=== PATIENT | female | born 1965 | race Caucasian/White ===

== ENCOUNTER → 2017-05-13 | Day surgery (SDC) | payer MEDICARE, MEDICAID ==
[~2017-05-13] VITALS: Ht 170.2 cm; Wt 83.5 kg
[~2017-05-13] MED LIST: ASPIRIN ADULT L81 M3 PO; AZITHROMYCIN250 MG PO; CIPRO 500MG TA500 MG PO; ESTRADIOL0.5 MG PO; ESTRADIOL1 MG PO; GEMFIBROZIL600 MG PO; HYDROCHLOROTH12.5 M1 PO; HYDROXYZINE 25M25 MG PO; IBUPROFEN800 MG PO; K-DUR 2020 MEQ PO; LEVOTHYROXIN0.025 MG PO; LEVOTHYROXINE0.05 MG NG; LIDOCAINE VISC100 ML PO; LORATADINE 10MG10 M1 PO; LORTAB 5/500 501 TAB PO; METFORMIN500 MG PO; NAPROSYN 500MG500 MG PO; OMEPRAZOLE40 MG PO; POTASSIUM CHLO20 ME2 PO; PRAVASTATIN40 MG PO; PROAIR HFA0.09 MG/AC IH; RANITIDINE HCL150 MG PO; TEGRETOL 200MG200 MG PO; TEGRETOL200 MG PO; TYLENOL/COD #31 EACH PO; VITAMIN D31000 IU PO
[2017-05-13 09:08] VITALS: BP 155/87
[2017-05-13 09:20] VITALS: BP 155/87
[2017-05-13 09:21] VITALS: BP 189/95
--- NOTE | 2017-05-13 09:24 | Procedure Note ---
Procedure detail Date of procedure: 05/13/17 Anesthesiologist: Deric Verduzco M.D. Complications: None Pre-procedure diagnosis: Sacroiliitis Post-procedure diagnosis: Same Indications for procedure: This patient is a pleasant 51-year-old white female who we are seeing for LEFT low back and LEFT leg pain. She has tenderness over the LEFT SI joint. She has a positive Saad's test on the LEFT side. She does have some history of low back pain with degenerative arthritis. We will order an MRI of lumbar spine to discern pathology. Today we will inject her LEFT SI joint to see if this will give her some relief. Procedure detail: Procedure: Left sacroiliac injection under fluoroscopy Informed consent was obtained and the risk and benefits of the procedure were explained to the patient.~ The patient was taken to the procedure room and noninvasive monitors were placed including noninvasive blood pressure cuff and pulse oximeter.~ The patient was placed prone on the procedure table.~ The~ left hip was cleansed using Betadine as a cleansing solution.~ C-arm fluorosocpy was used to view the left SI joint.~ The skin and subcutaneous tissues were anesthetized using Lidocaine 1.5% and a 25-gauge needle.~ After this, a 22-gauge spinal needle was inserted under fluoroscopic guidance into the inferior aspect of the left SI joint.~ Omnipaque dye was injected and a good spread was seen throughout the joint.~ After this, approximately 5 mL of bupivacaine 0.25% and Depo-Medrol 40 mg was incrementally injected into the sacroiliac joint.~ The patient tolerated the procedure well with no complications.~ The patient was observed in the Pain Clinic for a period of 30-45 minutes, then discharged home neurologically intact.~ Plan and disposition: We will follow up with her in 2 weeks. We will order an MRI of lumbar spine to discern pathology given her low back pain and radicular symptoms to her leg. at 0923
[2017-05-13 09:36] VITALS: BP 145/78
== END ==
LOC: PM 08:49
PROC: 3E0U33Z Introduction of Anti-inflammatory into Joints, Percutaneous Approach (ICD-10-PCS; principal; 2017-05-13)
PROC: 3E0U3BZ Introduction of Anesthetic Agent into Joints, Percutaneous Approach (ICD-10-PCS; 2017-05-13)
DX: M46.1 Sacroiliitis, not elsewhere classified (principal)
CPT/HCPCS: G0260; J1040; Q9966

== ENCOUNTER 2017-06-09 06:13 | Day surgery (SDC) | payer MEDICARE, MEDICAID ==
[~2017-06-09] VITALS: Ht 170.2 cm; Wt 82.6 kg
[2017-06-09 07:36] LABS: HEMOGLOBIN 13.8 g/dL (12.2-16.2); LYMPH # 6.4 K/mm3 (0.7-4.5); LYMPH % 45.1 % (10-50.0)
--- NOTE | 2017-06-09 10:07 | Anesthesia Record ---
Anesthesia Record Part I Total IV fluids: 500 EBL (ml): 0 Urine Output: 0 B/P: 116/73 % SaO2: 95 Pulse: 91 Resps: 16 Temp: 97.2 Patient is: Drowsy, Stable Stable to PACU at: 0845 at 1006
--- NOTE | 2017-06-09 10:08 | Anesthesia Record ---
Anesthesia Record Part II Discharge time: 914 Destination: Same day surgery PACU nurse assessment review? Yes Patient is: Stable Anesthesia complications? No at 1007
[2017-06-09 11:03] VITALS: BP 140/80
--- NOTE | 2017-06-09 16:34 | Operative Note ---
[employer] Date of Procedure: 06/09/17 Time of Procedure: 0800 Surgeon: Anurag Winn Procedure performed: Left myringotomy and tube Anesthesia: General Pre-operative dx: 1.Left persistent acute otitis media 2. Left serous otitis media Post-operative dx: same Operative procedure: With patient under general anesthesia the Left ear was prepped and draped. The Left tympanic membrane was acutely inflamed. The fluid was cleared and a Triune T-tube was inserted. Ciprodex drops were applied. The operating microscope was used for all the procedure. And the patient was sent to recovery in good general condition. EBL (ml): 1 Complications: None at 2513
[2017-06-20] MEDS ORDERED: TOPROL XL 25MG25 MG PO (09:01)
[2017-06-20] MEDS ORDERED: VISTARIL25 MG PO (09:01)
[2017-06-20] MEDS ORDERED: LIPITOR40 MG PO (09:02)
== END 2017-06-09 10:12 | disposition home or self-care (01) ==
LOC: SDC 06:13
PROVIDERS: Otolaryngology
PROC: 099680Z Drainage of Left Middle Ear with Drainage Device, Via Natural or Artificial Opening Endoscopic (ICD-10-PCS; principal; 2017-06-09 08:00)
DX: H65.02 Acute serous otitis media, left ear (principal); E11.9 Type 2 diabetes mellitus without complications
CPT/HCPCS: J2405

== ENCOUNTER → 2017-06-10 | Outpatient (CLI) | payer MEDICARE, MEDICAID ==
[~2017-06-10] MED LIST changes: +LIPITOR40 MG PO; +TOPROL XL 25MG25 MG PO; +VISTARIL25 MG PO
--- NOTE | 2017-06-10 17:34 | RADIOLOGY REPORT PS360 ---
CT LUMBAR SPINE W/O CONTRAST CLINICAL INDICATION: Low back pain radiating into the legs BACK PAIN ORDERING PHYSICIAN: ABDIFATAH DAMIAN CRNA PATIENT AGE: 51 years COMPARISON: None TECHNIQUE:Axial, sagittal, and coronal images are generated and reviewed without contrast FINDINGS: There is normal alignment. There are Schmorl's nodes at T12, L1, L2, and L3. There is minimal concentric bulging disc at L3-L4 and L4-L5 and L5-S1. Facet hypertrophic change is present at L4-L5 and L5-S1 with mild bilateral foraminal narrowing at L4-L5... Small vertebral endplate osteophytes are present at L2, L3, L4, and L5 No fracture or dislocation. No lytic or blastic change. There is a small area of decreased attenuation involving the L3 vertebral body superiorly is 7 mm in could be due to a lipoma. IMPRESSION: 1. No acute finding. 2. Mild lumbar spondylosis with vertebral endplate osteochondrosis 3. Mild concentric bulging disc L3-L4 L4-L5 and L5-S1 and facet hypertrophic changes at L4 and L5 with mild bilateral foraminal narrowing at L4-L5
== END ==
LOC: RAD 13:43
DX: M54.5 Low back pain (principal)

== ENCOUNTER → 2017-06-24 | Outpatient (CLI) | payer MEDICARE, MEDICAID ==
--- NOTE | 2017-06-24 13:29 | RADIOLOGY REPORT PS360 ---
History and Indications: Hypertension, diabetes, hyperlipidemia, tobacco use, family history, chest pain and shortness of breath. Procedure: Patient received a 0.4 mg of Lexiscan, resting heart rate was 77 bpm, resting blood pressure 136/85, with Lexiscan maximum heart rate achieved was 105 bpm which is less than 85% of the maximum predicted heart rate and a blood pressure was 133/89. With Lexiscan patient complained of shortness of breath. Electrocardiogram: Resting electrocardiogram showed sinus rhythm first degree AV block, nonspecific ST-T changes, with Lexiscan there is less than 1.[address] segment depression noted from the baseline EKG. The EKG portion of the Lexiscan Myoview is nondiagnostic. Cardiac stress and resting SPECT images: Cardiac stress and rest SPECT images were obtained using technetium 99 Myoview 10.3 mCi at rest and 30.0 mCi at stress, gated SPECT further analysis of segmental wall motion and calculation of the ejection fraction also done. Cardiac stress and rest SPECT images show a mild fixed defect in the anterior wall with normal contractility in the gated SPECT is likely secondary to soft tissue attenuation, no reversible ischemia seen. Computer derived ejection fraction over 65% with no obvious regional wall motion abnormality, right ventricle is normal size and contractility. Conclusion: 1. The EKG portion of the Lexiscan Myoview is nondiagnostic. 2. No obvious scintigraphic evidence of reversible ischemia seen, computer derived ejection fraction is over 65% with no obvious regional wall motion abnormality, right ventricle is normal size and contractility.
--- NOTE | 2017-06-24 13:48 | RADIOLOGY REPORT PS360 ---
PROCEDURE: 2-D M-mode and color Doppler study INDICATIONS FOR THE TEST: Chest pain COPD Heart Murmur Tobacco SmokingX Palpitations Fatigue Syncope Edema HypertensionXDiabetes MellitusX Rheumatic Fever SOB DOEXObesityXHyperlipidemiaX Family History HD Additional History PATIENT INFORMATION HEIGHT: 67 WEIGHT:182 GENDER: Female B/P:140/80 2-D/M-MODE INTERPRETATION: 2-D MEASUREMENTS OBSERVED VALUES IN CMS Right Ventricular Dimension (RVDd) 3.0 Interventricular Septum (Thickness)(IVsd) 1.0 Left Ventricular Internal Dimensions(LVIDd) 4.4 Left Ventricular Posterior Wall (Thickness)(LVPWd) 1.0 Aortic Root 3.0 Aortic Cusp Separation Left Atrial Dimensions (LAD) 3.8 2D 1. Left atrium is qualitatively mildly enlarged, left ventricle is normal size, there is no concentric left ventricular hypertrophy, visually estimated ejection fraction 55% with no obvious regional wall motion abnormality. 2. The right atrium is normal size, right ventricle is mildly enlarged with normal contractility. 3. The aortic valve is minimally fibrosed. 4. The mitral valve has mild mitral annular calcification. 5. The tricuspid valve is grossly normal. 6. No significant pericardial effusion noted. DOPPLER INTERROGATION: Doppler interrogation of the aortic, mitral and tricuspid valve is presence of mild mitral and tricuspid regurgitation, tricuspid regurgitant jet velocity is insufficient for calculation of the right ventricular systolic pressure. Diastolic parameters are within normal range. CONCLUSION: 1. Normal left ventricular size, preserved left ventricular systolic function, visually estimated ejection fraction 55% with no obvious regional wall motion abnormality, diastolic parameters are within normal range. 2. Mildly enlarged right ventricle with normal contractility. 3. Mild mitral and tricuspid regurgitation. 4. No significant pericardial effusion noted.
== END ==
LOC: RAD 07:19
DX: R00.2 Palpitations (principal); R06.00 Dyspnea, unspecified; I10 Essential (primary) hypertension; E78.5 Hyperlipidemia, unspecified; R06.83 Snoring; R53.83 Other fatigue; G47.10 Hypersomnia, unspecified; Z82.49 Family history of ischemic heart disease and other diseases of the circulatory system
CPT/HCPCS: A9502; J2785

== ENCOUNTER → 2017-07-04 | Outpatient (CLI) | payer MEDICARE, MEDICAID | LOC: SL 20:17 | DX: G47.10 Hypersomnia, unspecified (principal); R00.2 Palpitations; R06.83 Snoring ==

== ENCOUNTER → 2017-07-18 | Outpatient (CLI) | payer MEDICARE, MEDICAID ==
--- NOTE | 2017-07-23 11:12 | RADIOLOGY REPORT PS360 ---
DIG MAMM-SCREEN RIGOBERTO W/CAD CAD Screening COMPARISON: Digital mammograms 07/12/2016. An 03/12/2014 INDICATION: There is no personal or family history of breast cancer. TECHNIQUE: Standard CC and MLO images were obtained. R2 CAD reviewed. FINDINGS: Moderate diffuse fibroglandular densities are seen in both breast primarily upper outer quadrants as noted previously. The findings are bilateral and symmetrical. There is no new or suspicious lesion in either breast and no suspicious microcalcifications. IMPRESSION: Moderate diffuse breast density with no suspicious lesion seen recommend yearly follow-up BI-RADS CATEGORY: 1_Negative RECOMMENDED FOLLOWUP: 12M 12 MONTH FOLLOW-UP (A letter has been sent to the patient regarding results of the study.)
== END ==
LOC: RAD 15:54
DX: Z12.31 Encounter for screening mammogram for malignant neoplasm of breast (principal)
CPT/HCPCS: G0202